=== PATIENT | male | born 1940 | race Caucasian/White ===

== ENCOUNTER 2016-10-20 07:05 | Day surgery (SDC) | payer MEDICARE, OTHER ==
[2016-10-17 13:41] LABS: HEMATOCRIT 42.8 % (40.0-51.0); HEMOGLOBIN 14.4 g/dL (13.6-17.8)
[2016-10-17 14:01] LABS: BUN (BLOOD UREA NITROGEN) 13 MG/DL (6-23); CALCIUM, SERUM 8.9 MG/DL (8.5-10.4); CHLORIDE, SERUM 108 MMOL/L (96-112); CO2 (CARBON DIOXIDE) 26 MMOL/L (24-34); GFR AFRICAN AMERICAN 94 ML/MIN (>=60); GFR NON AFRICAN AMERICAN 82 ML/MIN (>=60); GLUCOSE, SERUM 104 MG/DL (60-99); SODIUM, SERUM 143 MMOL/L (135-148)
[2016-10-17 15:59] LABS: BASOPHILS 0.3 %; BASOPHILS ABSOLUTE 0.03 10/3/uL (0.0-0.16); EOSINOPHILS 1.7 %; EOSINOPHILS ABSOLUTE 0.15 10/3/uL (0.0-0.53); IMMATURE GRANULOCYTES 0.2 %; IMMATURE GRANULOCYTES ABSOLUTE 0.02 10/3/uL (0.0-0.11); LYMPHOCYTES 22.7 %; LYMPHOCYTES ABSOLUTE 1.98 10/3/uL (0.67-4.30); MEAN CORPUS HGB CONC 33.4 g/dL (32.0-36.0); MEAN CORPUSCULAR HEMOGLOB 31.4 pg (26.0-34.0); MEAN PLATELET VOLUME 10.3 fL (9.2-13.0); MONOCYTES 5.7 %; NEUTROPHILS 69.4 %; NEUTROPHILS ABSOLUTE 6.06 10/3/uL (2.02-8.40); PLATELET COUNT 270 10/3/uL (150-400); RBC DISTRIBUTION WIDTH 13.6 % (12.0-16.0); RED CELL COUNT 4.55 10/6/uL (4.7-6.1); WHITE BLOOD CELLS 8.7 10/3/uL (4.5-10.5)
[2016-10-17 16:05] LABS: MANUAL DIFF NO %; MEAN CORPUSCULAR VOLUME 94.1 fL (80-100)
[2016-10-17 16:28] LABS: A/G RATIO 1.5 (0.7-1.9); ALBUMIN 4.1 G/DL (3.5-5.0); GLOBULIN 2.8 G/DL (2.5-4.1); SGOT(AST) 10 U/L (5-40); SGPT(ALT) 10 U/L (5-65); TOTAL BILIRUBIN 0.5 MG/DL (0-1.2); TOTAL PROTEIN 6.9 G/DL (6.0-8.5)
[2016-10-17 16:30] LABS: ALKALINE PHOSPHATASE 115 U/L (45-117)
--- NOTE | ~2016-10-20 | OP ---
Record Of [facility] [address] [place]. [address] NAME: Joseph HAYWOOD : 36 STATUS : REG [facility] PAT#: [id number] AGE: 76 ADM/REG DATE : 10/20/16 MR#: [id number] REPORT SERV DATE: 10/20/16 DICTATED BY: NIC HODGES DATE: 10/20/16 REPORT STATUS : Draft TRANSCRIBED BY: RACHEL DATE: 10/20/16 DATE OF PROCEDURE: 10/20/2016 PREOPERATIVE DIAGNOSES: 1. Phimosis. 2. History of radical robotic prostatectomy. 3. History of prostate cancer. PROCEDURES: 1. Circumcision. 2. Cystoscopy. 3. Cath placement (complex). ANESTHESIA: General inhalation. SURGEON: Nic Hodges M.D. ESTIMATED BLOOD LOSS: 5 mL. SPECIMENS: Foreskin. DRAINS: One #14 coude Dowling. IMMEDIATE POSTOP: Satisfactory. DESCRIPTION OF PROCEDURE: The patient was brought into the cysto suite, given inhalational anesthetic and placed in lithotomy position. Penis was prepped and draped in sterile fashion. Initially, a flexible cystoscopy was performed using video monitoring. Distal urethra was normal. Prostate had been surgically removed. 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 I could however negotiate the scope into the bladder. Bladder was inspected. The orifices were normal. No additional pathology was noted. At this point, the cystoscope was removed. A circumcision was performed using a standard double ring technique. Foreskin was dissected free using a combination of blunt and sharp dissection. Hemostasis was obtained with electrocautery. The skin edges were approximated with suture using interrupted 4-0 chromic catgut. Prior to placing a dressing on the penis, a #14 coude Dowling was passed per urethra into the bladder. Clear yellow urine returned. Balloon was inflated. Catheter irrigated well confirming proper positioning in the bladder. Dressing was placed loosely on the penis. The patient was awakened and sent to recovery room in satisfactory condition. /RACHEL Nic Hodges M.D. Record Of Operation [address] [address] NAME: Joseph HAYWOOD : 36 STATUS : REG [facility]#: [id number] AGE: 76 ADM/REG DATE : 10/20/16 MR#: [id number] REPORT SERV DATE: 10/20/16 DICTATED BY: NIC HODGES DATE: 10/20/16 REPORT STATUS : Draft TRANSCRIBED BY: MODL DATE: 10/20/16 / [id number] CC: Sylvester Smith M.D.
[~2016-10-20 07:05] MED LIST: ACULARLS OPH; ASAB PO; HYZAAR 50/12.51 TAB PO; INDE120LA PO; L40 PO; LEVOXYL50 MCG PO; LIPITOR40 PO; OMNIPRED1 % OPH; PREDFORTE OPH; PRIM50B PO; PROAIR HFA INH; SYMBICORT 160/41 INH INH; TOPAMAX50 MG PO; TOPXL25 PO; ULTRAM50 PO; VIGAMOX OPH; VITAMIN D31000 UNIT PO; ZOL100 PO
== END 2016-10-20 17:52 | disposition home or self-care (01) ==
LOC: SDC 07:05
PROVIDERS: Urology
PROC: 0VTTXZZ Resection of Prepuce, External Approach (ICD-10-PCS; principal; 2016-10-20 08:45)
PROC: 0T9B70Z Drainage of Bladder with Drainage Device, Via Natural or Artificial Opening (ICD-10-PCS; 2016-10-20 08:45)
DX: N48.0 Leukoplakia of penis (principal); N47.1 Phimosis; I10 Essential (primary) hypertension; I25.10 Atherosclerotic heart disease of native coronary artery without angina pectoris; E78.00 Pure hypercholesterolemia, unspecified; E03.9 Hypothyroidism, unspecified; J44.9 Chronic obstructive pulmonary disease, unspecified; G25.0 Essential tremor; M19.90 Unspecified osteoarthritis, unspecified site; K44.9 Diaphragmatic hernia without obstruction or gangrene; H91.90 Unspecified hearing loss, unspecified ear; F32.9 Major depressive disorder, single episode, unspecified; Z90.79 Acquired absence of other genital organ(s); Z85.46 Personal history of malignant neoplasm of prostate; Z95.1 Presence of aortocoronary bypass graft; Z87.891 Personal history of nicotine dependence; Z79.82 Long term (current) use of aspirin; Z79.899 Other long term (current) drug therapy; Z97.4 Presence of external hearing-aid; Z98.41 Cataract extraction status, right eye; Z98.42 Cataract extraction status, left eye; Z96.1 Presence of intraocular lens; Z98.890 Other specified postprocedural states; Z90.49 Acquired absence of other specified parts of digestive tract; Z86.010 Personal history of colon polyps; Z96.651 Presence of right artificial knee joint
CPT/HCPCS: 80053; 85025; 87086; 88304; 93005; A9270-GY; J0690; J2370; J2405; J3010